=== PATIENT | female | born 1995 | race Caucasian/White ===

== ENCOUNTER 2018-09-26 15:15 | Emergency (ER) | payer OTHER, BC | END 2018-09-26 16:00 | disposition home or self-care (01) | LOC: FER 15:15 ==

== ENCOUNTER 2020-12-12 15:41 | Emergency (ER) | payer BC, OTHER ==
[2020-12-12 16:24] VITALS: BP 118/79; PULSE 80; TEMP 98; BMI 30.7
== END 2020-12-12 16:25 | disposition home or self-care (01) ==
LOC: FER 15:41
DX: J02.9 Acute pharyngitis, unspecified (principal); R09.81 Nasal congestion; Z11.52 Encounter for screening for COVID-19
CPT/HCPCS: 87804; 87880; 99283-25; C9803; U0003; U0005